=== PATIENT | male | born 1970 | race African-American/Black ===

== ENCOUNTER 2025-04-21 08:05 | Inpatient (IN) | payer SELFPAY ==
[~2025-04-21] VITALS: Ht 167.6 cm; Wt 113.4 kg
[2025-04-21 08:12] VITALS: O2SAT 99
[2025-04-21 08:53] LABS: HEMATOCRIT. 31.9 % (42.0-52.0); HEMOGLOBIN. 10.7 g/dL (14.0-18.0); MEAN PLATELET VOLUME 8.8 fl (7.4-10.4); PLATELET 124 x1000/uL (130-400); RED BLOOD CELL COUNT 3.11 mill/uL (4.7-6.1); RED CELL DISTRIBUTION WIDTH 16.3 % (11.6-14.6)
[2025-04-21 09:10] LABS: CREATININE 2.3 mg/dL (0.6-1.3); TROPONIN I HIGH SENSITIVITY 4 ng/L (3.0-53); UREA NITROGEN BLOOD 51 mg/dL (9-23)
[2025-04-21 09:11] LABS: ASPARTATE AMINOTRANSFERASE 76 IU/L (<34)
[2025-04-21 09:12] LABS: BILIRUBIN DIRECT 1.4 mg/dL (<=3.0); BILIRUBIN TOTAL 2.6 mg/dL (0.1-1.0); PROTEIN TOTAL 7.1 g/dL (6.0-8.3)
[2025-04-21] MEDS: FUROSEMIDE 40MG/4ML VIAL IV ONE (09:12)
[2025-04-21 09:17] LABS: INR 1.2
[2025-04-21 10:16] LABS: EOSINOPHILS % MANUAL 3.0 % (0.0-5.0); LYMPHOCYTES % MANUAL 15.0 % (20.0-50.0); MONOCYTES % MANUAL 11.0 % (2.0-8.0); NEUTROPHILS % MANUAL 71.0 % (45.0-75.0); PLATELET ESTIMATE SLIGHTLY DECREASED
[2025-04-21 11:30] VITALS: BP 136/85; PULSE 86; RESP 18; TEMP 36.5; TEMP 36.5292; O2SAT 99
[2025-04-21] MEDS ORDERED: GUAIFENESIN 200MG/10ML SUGAR FREE UDC PO PRN (11:30)
[2025-04-21] MEDS ORDERED: IPRATROPIUM/ALBUTEROL 0.5-3(2.5)MG/3ML NEB HHN PRN (11:30)
[2025-04-21] MEDS ORDERED: ACETAMINOPHEN 325MG TABLET PO PRN ×2 (11:30)
[2025-04-21] MEDS ORDERED: DOCUSATE SODIUM 100MG CAPSULE PO PRN (11:30)
[2025-04-21] MEDS ORDERED: DEXTROSE 50% WATER 50ML SYRINGE IV PRN (13:30)
[2025-04-21] MEDS: FUROSEMIDE 40MG/4ML VIAL IV SCH (13:39)
[2025-04-21] MEDS: THIAMINE HCL 100MG TABLET PO SCH (13:39)
[2025-04-21] MEDS: MULTIVITAMINS,THER W-MINERALS TABLET PO SCH (13:40)
[2025-04-21] MEDS: FAMOTIDINE 20MG/2ML VIAL IV SCH (13:40)
[2025-04-21] MEDS ORDERED: ALBUMIN HUMAN 25GM/100ML (25%) IV SCH (14:00)
[2025-04-21 16:00] VITALS: BP 164/88; PULSE 85; RESP 16; TEMP 36.6; O2SAT 99
[2025-04-21 20:00] VITALS: BP 162/79; PULSE 87; RESP 16; TEMP 36.8; O2SAT 97
[2025-04-22] VITALS: BP 141/75; PULSE 93; RESP 16; TEMP 37.1; O2SAT 98
[2025-04-22 06:54] LABS: HEMATOCRIT. 29.3 % (42.0-52.0); HEMOGLOBIN. 10.0 g/dL (14.0-18.0); MEAN PLATELET VOLUME 9.0 fl (7.4-10.4); PLATELET 109 x1000/uL (130-400); RED BLOOD CELL COUNT 2.90 mill/uL (4.7-6.1); RED CELL DISTRIBUTION WIDTH 16.2 % (11.6-14.6)
[2025-04-22 07:08] LABS: FOLIC ACID (FOLATE) SERUM 7.45 ng/mL (>5.38)
[2025-04-22 07:18] LABS: VITAMIN B12 SERUM > 2000 pg/mL (211-911)
[2025-04-22 07:36] LABS: VITAMIN B12 SERUM 1900 pg/mL (211-911)
[2025-04-22 07:39] LABS: HEPATITIS A AB IGM NEGATIVE (Negative)
[2025-04-22 07:40] LABS: HEPATITIS B CORE AB IGM NEGATIVE (Negative)
[2025-04-22 07:41] LABS: HEPATITIS C AB NON REACTIVE (Neg) (Negative)
[2025-04-22 07:45] LABS: CREATININE 1.8 mg/dL (0.6-1.3)
[2025-04-22 07:46] LABS: UREA NITROGEN BLOOD 52 mg/dL (9-23)
[2025-04-22 07:47] LABS: ASPARTATE AMINOTRANSFERASE 59 IU/L (<34)
[2025-04-22 07:48] LABS: BILIRUBIN DIRECT 1.0 mg/dL (<=3.0); BILIRUBIN TOTAL 1.8 mg/dL (0.1-1.0); PHOSPHORUS 4.2 mg/dL (2.5-4.9); PROTEIN TOTAL 6.4 g/dL (6.0-8.3)
[2025-04-22 08:00] VITALS: BP 138/85; PULSE 91; RESP 16; TEMP 36.4; O2SAT 100
[2025-04-22] MEDS: FOLIC ACID 1MG TABLET PO SCH (08:57)
[2025-04-22] MEDS: FUROSEMIDE 40MG/4ML VIAL IVP SCH ×2 (08:57→17:19)
[2025-04-22 12:00] VITALS: BP 142/88; PULSE 94; RESP 16; TEMP 36.6; O2SAT 98
[2025-04-22 16:00] VITALS: BP 128/77; PULSE 91; RESP 16; TEMP 36.5; O2SAT 100
[2025-04-22 16:53] LABS: EOSINOPHILS % MANUAL 4.0 % (0.0-5.0); LYMPHOCYTES % MANUAL 11.0 % (20.0-50.0); MONOCYTES % MANUAL 15.0 % (2.0-8.0); NEUTROPHILS % MANUAL 70.0 % (45.0-75.0); PLATELET ESTIMATE DECREASED
[2025-04-22] MEDS ORDERED: LORAZEPAM 1MG TABLET PO PRN (18:00)
[2025-04-22] MEDS ORDERED: DEXTROSE 50% WATER 50ML SYRINGE IV PRN (18:30)
[2025-04-22 20:00] VITALS: BP 149/86; PULSE 92; RESP 18; TEMP 36.9; O2SAT 99
[2025-04-22] MEDS: BLOOD SUGAR DIAGNOSTIC STRIP TEST SCH (21:00)
[2025-04-22] MEDS: INSULIN LISPRO 100 UNITS/ML SUBCUT SCH (21:00)
[2025-04-22] MEDS: IRON SUCROSE COMPLEX 100 MG/5 ML ML IV SCH (22:00)
[2025-04-22] MEDS: LACTULOSE 20G/30ML UDC PO SCH (22:01)
[2025-04-23] VITALS: BP 161/84; PULSE 89; RESP 18; TEMP 36.6; O2SAT 99
[2025-04-23] MEDS: CLONIDINE 0.1MG TABLET PO PRN (02:37)
[2025-04-23 04:00] VITALS: BP 152/111; PULSE 83; RESP 18; TEMP 36.6; O2SAT 97
[2025-04-23 07:14] LABS: PLATELET 111 x1000/uL (130-400); RED BLOOD CELL COUNT 2.81 mill/uL (4.7-6.1); RED CELL DISTRIBUTION WIDTH 16.3 % (11.6-14.6)
[2025-04-23 07:45] LABS: CREATININE 1.2 mg/dL (0.6-1.3); UREA NITROGEN BLOOD 46 mg/dL (9-23)
[2025-04-23 07:46] LABS: ASPARTATE AMINOTRANSFERASE 54 IU/L (<34)
[2025-04-23 07:47] LABS: BILIRUBIN DIRECT 1.0 mg/dL (<=3.0); BILIRUBIN TOTAL 1.9 mg/dL (0.1-1.0); PHOSPHORUS 3.8 mg/dL (2.5-4.9); PROTEIN TOTAL 6.3 g/dL (6.0-8.3)
[2025-04-23 08:00] VITALS: BP 112/65; PULSE 89; RESP 16; TEMP 36.4; O2SAT 96
[2025-04-23] MEDS ORDERED: FOLIC ACID 1MG TABLET PO SCH (09:00)
[2025-04-23] MEDS ORDERED: FURO80TA87 MT (10:46)
[2025-04-23 12:00] VITALS: BP 148/74; PULSE 76; RESP 18; TEMP 36.5; O2SAT 98
[2025-04-23] MEDS: ALBUMIN HUMAN 25GM/100ML (25%) IV SCH (14:07)
[2025-04-23 16:00] VITALS: BP 129/74; PULSE 89; RESP 19; TEMP 36.8; O2SAT 98
[2025-04-23 17:57] VITALS: BP 129/74; PULSE 91; RESP 18; TEMP 98.2
== END 2025-04-23 18:39 | disposition home or self-care (01) | DRG 501 ==
LOC: ER 09:10 → EDBEDREQ 10:34 → EDBEDREQTM 10:34 → ENRESERV 11:29 → 5WST 11:40
PROVIDERS: ADMIT Internal Medicine; ATTEND Internal Medicine
DX: N50.89 Other specified disorders of the male genital organs (principal); R18.8 Other ascites; E83.41 Hypermagnesemia; E88.09 Other disorders of plasma-protein metabolism, not elsewhere classified; D69.59 Other secondary thrombocytopenia; N17.9 Acute kidney failure, unspecified; F10.10 Alcohol abuse, uncomplicated; E66.9 Obesity, unspecified; K74.60 Unspecified cirrhosis of liver; D53.9 Nutritional anemia, unspecified; N18.9 Chronic kidney disease, unspecified; I50.9 Heart failure, unspecified; E80.6 Other disorders of bilirubin metabolism; Z68.41 Body mass index [BMI] 40.0-44.9, adult; Z59.00 Homelessness unspecified
CPT/HCPCS: 36415; 71045; 76700; 76870; 80048; 80076; 82140; 82270; 82607; 82728; 82746; 82962; 83540; 83550; 83735; 83880; 84100; 84443; 84484; 85025; 85027; 85044; 86301; 86705; 86709; 87340; 93005; 93970; 93976; 96374; 99285; A4606; J1308; J1938; P9047